=== PATIENT | female | born 1935 | race Caucasian/White ===

== ENCOUNTER 2017-12-16 11:56 | Day surgery (SDC) | payer OTHER, BC ==
[~2017-12-16] VITALS: Ht 162.6 cm; Wt 132.4 kg
[~2017-12-16 11:56] MED LIST: ADULT ASPIRIN R81 MG PO; ALLOPURINOL100 MG PO; ASPIRIN325 MG PO; CALCITRIOL0.5 MCG PO; CARVEDILOL25 MG PO; CARVEDILOL6.25 MG PO; CATAPRES0.1 MG PO; CITRACAL PLUS1 EAC1 PO; CLINORIL150 MG PO; COLCRYS0.6 MG PO; CYANOCOBALAM1000 MCG PO; DUONEB 2.5-0.5 M3 ML AEROSOL; FERROUS SULFAT325 MG PO; GABAPENTIN100 MG PO; GABAPENTIN400 MG PO; GABAPENTIN600 MG PO; HUMALOG100 UNIT/2 SC; LASIX40 MG PO; LASIX80 MG PO; LEVEMIR100 UNIT/2 SC; LIPITOR20 MG PO; LISINOPRIL5 MG PO; NOVOLOG 10100 UNITS/ SC; NOVOLOG MI100 UNIT/M PO; PERCOCET 5/31 TABLET PO; RENVELA800 MG PO; REQUIP0.5 MG PO; REQUIP4 MG PO; Requip PO; Rocaltrol PO; SENSIPAR30 MG PO; TYLENOL REGULA325 MG PO; VIRT-CAPS SOFTGE1 MG PO; VITAMIN D35000 UNIT PO; Vitamin D, Drisdol PO; ZYLOPRIM100 MG PO
[2017-12-16 13:13] VITALS: BP 194/78
[2017-12-16 13:16] LABS: HEMATOCRIT 32.1 % (36.0-46.0); HEMOGLOBIN 10.6 G/DL (11.9-15.5); MCH 35.2 PG (29.0-34.0); MCV 106.6 FL (83-99); PLATELET COUNT 154 K/uL (156-360); RBC DIS.WIDTH-CV 13.6 % (11.8-14.6); RBC DIS.WIDTH-SD 53.1 % (39-53); RED BLOOD COUNT 3.01 M/uL (3.80-5.20); WHITE BLOOD COUNT 6.4 K/uL (4.1-10.2)
[2017-12-16 13:26] LABS: CHLORIDE 101 mEq/L (99-109); SODIUM 137 mEq/L (136-147)
[2017-12-16 13:28] LABS: GLUCOSE 206 mg/dL (70-99)
[2017-12-16 13:32] LABS: CREATININE 6.5 mg/dL (0.6-1.3); GFR ESTIMATE (CALCULATED) 6 mL/min/
[2017-12-16 13:33] LABS: UREA NITROGEN (BUN) 54 mg/dL (9-23)
[2017-12-16 19:23] VITALS: BP 156/67
[2017-12-16 19:54] VITALS: BP 168/72
[2017-12-16 20:25] VITALS: BP 148/68
== END 2017-12-16 20:35 | disposition home or self-care (01) ==
LOC: SDC 11:56
PROVIDERS: Surgery
PROC: 05WY07Z Revision of Autologous Tissue Substitute in Upper Vein, Open Approach (ICD-10-PCS; principal; 2017-12-16)
DX: T82.41XA Breakdown (mechanical) of vascular dialysis catheter, initial encounter (principal); Y83.2 Surgical operation with anastomosis, bypass or graft as the cause of abnormal reaction of the patient, or of later complication, without mention of misadventure at the time of the procedure; I12.0 Hypertensive chronic kidney disease with stage 5 chronic kidney disease or end stage renal disease; E11.22 Type 2 diabetes mellitus with diabetic chronic kidney disease; N18.6 End stage renal disease; Z99.2 Dependence on renal dialysis; Z79.4 Long term (current) use of insulin; D64.9 Anemia, unspecified; M79.7 Fibromyalgia; M10.9 Gout, unspecified; Z91.041 Radiographic dye allergy status; Z79.82 Long term (current) use of aspirin
CPT/HCPCS: 80048; 82948; 84132 91; 85027; 87641; 93005; J0690; J1644; J2720; J3010